=== PATIENT | female | born 1970 | race Caucasian/White ===

== ENCOUNTER 2020-02-25 18:22 | Emergency (ER) | payer OTHER ==
[2020-02-25] MEDS ORDERED: HYDROmorphone 0.5 MG/0.5 ML Syringe IVPUSH ONE (18:23)
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
[2020-02-25] MEDS ORDERED: Ketorolac 30 MG/ML SDV IVPUSH ONE (19:44)
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
== END 2020-02-25 20:45 | disposition home or self-care (01) ==
LOC: JP.ED 18:22
DX: S16.1XXA Strain of muscle, fascia and tendon at neck level, initial encounter (principal); S50.11XA Contusion of right forearm, initial encounter; Z88.0 Allergy status to penicillin; V89.2XXA Person injured in unspecified motor-vehicle accident, traffic, initial encounter
CPT/HCPCS: 72040; 73090; 96374; 96375; 99284; J1170; J1885